=== PATIENT | male | born 1955 | race Caucasian/White ===

== ENCOUNTER → 2016-12-15 | Outpatient (CLI) | payer BC ==
[~2016-12-15] MED LIST: ALBUAER19 INH; ATOR-22 PO; B-COTAB18 PO; CALC-279 PO; CHOL100010 PO; CIPR-255 PO; EXEN1INJ3 PO; LEVO88TA3 PO; METF-384 PO; MULT-877 PO; SIMV-150 PO; TADA20TA PO; [UNRECOGNIZED DRUG - CODE] PO
--- NOTE | 2016-12-15 07:48 | DIAGNOSTIC IMAGING REPORT ---
CT LUMBAR SPINE WITHOUT CT DOSE: 676.27 mGy.cm CLINICAL HISTORY: Low back pain. Lumbar radiculopathy. TECHNIQUE: Helical images were acquired in transverse plane. Reformatted sagittal and coronal images were reviewed. CONTRAST: No contrast was administered COMPARISON STUDY: None. FINDINGS: L1-2 level: There is no evidence of significant disc bulge or focal herniation. There is no evidence of spinal or foraminal stenosis. L2-3 level: There is an inferior endplate L2 Schmorl's node. There is a circumferential disc bulge present. There is mild to moderate spinal stenosis. There is no significant foraminal narrowing L3-4 level: There is a circumferential disc bulge present. There is facet joint arthropathy. There is moderate spinal stenosis. There is left-sided foraminal narrowing. L4-5 level: There is a circumferential disc bulge. There is moderate spinal stenosis. There is right-sided foraminal narrowing. L5-S1 level: There is a posterior disc osteophyte complex. There is spinal stenosis. There is minor bilateral foraminal narrowing. No acute fractures or subluxations are visualized. IMPRESSION: Multilevel spondylitic changes with multilevel spinal stenosis. Electronically signed by: John Huertas M.D. 12/15/2016 7:46 AM Dictated Date/Time: 12/15/2016 7:42 AM
== END | disposition home or self-care (01) ==
LOC: C.CTS 07:28
PROVIDERS: ATTEND Physician Assistant Medical
DX: M47.26 Other spondylosis with radiculopathy, lumbar region (principal); M48.06 Spinal stenosis, lumbar region

== ENCOUNTER → 2017-07-06 | Outpatient (CLI) | payer BC ==
[~2017-07-06] MED LIST changes: -ALBUAER19 INH; -CALC-279 PO; -CIPR-255 PO
[2017-07-06 11:00] LABS: BLOOD UREA NITROGEN 17 mg/dl (7-18); GLUCOSE 150 mg/dl (70-99)
[2017-07-06 11:01] LABS: ALT/SGPT 30 U/L (12-78); AST/SGOT 17 U/L (15-37); BUN/CREATININE RATIO 18.1 (10-20); CALCIUM 8.8 mg/dl (8.5-10.1); CARBON DIOXIDE 28 mmol/L (21-32); CHLORIDE 103 mmol/L (98-107); CHOLESTEROL 160 mg/dl (0-200); CREATININE 0.96 mg/dl (0.60-1.40); POTASSIUM 4.8 mmol/L (3.5-5.1); SODIUM 139 mmol/L (136-145)
[2017-07-06 11:12] LABS: ALB/GLOB RATIO 1.1 (0.9-2); ALKALINE PHOSPHATASE 71 U/L (45-117); CHOLESTEROL/HDL RATIO 3.6; HDL CHOLESTEROL 45 mg/dl; LDL CHOLESTEROL CALCULATED 85 mg/dl; THYROID STIMULATING HORMONE 0.648 uIu/ml (0.300-4.500); TRIGLYCERIDES 150 mg/dl (0-150); VERY LOW DENSITY LIPOPROT CALC 30 mg/dl
[2017-07-06 11:40] LABS: ESTIMATED AVERAGE GLUCOSE 183 mg/dl; HA1C FLAG Normal (Normal)
== END | disposition home or self-care (01) ==
LOC: C.LABBC 08:28
PROVIDERS: ATTEND Internal Medicine
DX: E03.9 Hypothyroidism, unspecified (principal); E11.9 Type 2 diabetes mellitus without complications; G62.9 Polyneuropathy, unspecified; Z98.84 Bariatric surgery status

== ENCOUNTER → 2017-12-30 | Outpatient (CLI) | payer OTHER | END | disposition home or self-care (01) | LOC: C.LABBC 07:30 | PROVIDERS: ATTEND Internal Medicine Endocrinology, Diabetes & Metabolism | DX: E11.69 Type 2 diabetes mellitus with other specified complication (principal); E78.5 Hyperlipidemia, unspecified ==

== ENCOUNTER → 2018-04-07 | Day surgery (SDC) | payer BC, OTHER ==
[2018-04-05 13:39] VITALS: Ht 180.3 cm; Wt 86.4 kg
[~2018-04-07] VITALS: Ht 180.3 cm; Wt 86.4 kg
[~2018-04-07] MED LIST changes: -ATOR-22 PO; +BENA10TA10 PO; +CANA1TAB3 PO; +CHOL1000 PO; -CHOL100010 PO; +CHOL100041 PO; +CYAN500T13 PO; -EXEN1INJ3 PO; +INSU1INJ41 SC; +LIDOCAINE HCL 2% 2 ML VIAL (20MG/ML) ONE; +LPT40 PO; +MIDAZOLAM HCL 1 MG/ML 2ML VIAL ONE; +ONDANSETRON INJ 2 MG/ML 2 ML VIAL ONE; +PROPOFOL IV EMULSION 10 MG/ML 20 ML VIAL ONE; +SILD100T PO; -SIMV-150 PO; +SODIUM CHLORIDE 0.9% 500ML 500 ML IV ONE; -[UNRECOGNIZED DRUG - CODE] PO
--- NOTE | 2018-04-07 08:48 | Endo History and Physical ---
History & Physical Date of Service: Apr 07, 2018. Chief Complaint: Screening Referring Physician: Dr. Abdulkadir Kimbrough History of Present Illness 62 yo CM who presents for screening colonoscopy. Past Medical History Diabetes, Arthritis, High Cholesterol, Hypertension, Thyroid Disease Past Surgical History Hx Cardiac Surgery: No Hx Internal Defibrillator: No Hx Pacemaker: No Hx Abdominal Surgery: Yes (GASTRIC SLEEVE 2014) Hx of Implantable Prosthesis: No Hx Post-Op Nausea and Vomiting: No Hx Cancer Surgery: No Hx Thoracic Surgery: No Hx Orthopedic: Yes (RT/LT CTR) Hx Urinary Tract Surgery: No Family History None Social History Smoking Status: Former Smoker Hx Substance Use: No Hx Alcohol Use: Yes (1-2 beer per week) Allergies Coded Allergies: No Known Allergies (Verified , 04/05/18) Current Medications Reported Home Medications Medications Dose Route/Sig Max Daily Dose Days Date Category Viagra (Sildenafil Citrate) 100 Mg Tab 1 Tab PO DAILY 04/07/18 Reported Lotensin (Benazepril HCl) 10 Mg Tab 10 Mg PO QAM 04/05/18 Reported Vitamin D3 (Cholecalciferol) 1,000 Unit Tab 1 Tab PO DAILY 04/05/18 Reported Invokana (Canagliflozin) 300 Mg Tab 1 Tab PO DAILY 04/05/18 Reported Vitamin B12 500MCG (Cyanocobalamin) 500 Mcg Tab 500 Mcg PO DAILY 04/05/18 Reported Soliqua 100/33 100-33 Unt-Mcg/ml (Insulin Glargine-Lixisenatide) 1 Inj Inj 18 Units SC QAM 04/05/18 Reported Lipitor (Atorvastatin Calcium) 40 Mg Tab 1 Tab PO DAILY 04/05/18 Reported D 1000 (Cholecalciferol) 1,000 Unit Cap 1 Cap PO DAILY 04/05/18 Reported Glucophage (Metformin Hcl) 1,000 Mg Tab 1,000 Mg PO BID 01/02/17 Reported Multiple Vitamin/Minerals (Multiple Vitamins W/ Minerals) 1 Tab Tab 1 Tab PO DAILY 11/06/14 Reported Vitamin B Complex (B-Complex Vitamins) 1 Tab Tab 1 Tab PO DAILY 11/06/14 Reported Levothyroxine Sodium 88 Mcg Tab 88 Mcg PO DAILY 11/06/14 Reported Vital Signs Weight (Kilograms): 86.36 Height (Feet): 5 Height (Inches): 11 Date Time Temp Pulse Resp B/P (MAP) Pulse Ox O2 Delivery O2 Flow Rate FiO2 04/07/18 08:12 36.7 68 18 144/71 (95) 97 Room Air Physical Exam General Appearance: WD/WN, no apparent distress Respiratory/Chest: Auscultation: breath sounds normal Cardiovascular: Heart Auscultation: RRR Abdomen: Bowel Sounds: normal Inspection & Palpation: soft, non-distended, no tenderness, guarding & rebound Assessment and Plan Assessment: 62 yo CM who presents for screening colonoscopy. Plan: Proceed with colonoscopy.
--- NOTE | 2018-04-07 09:21 | GI REPORT ---
Patient Name: Washington Polo Procedure Date: 04/07/2018 8:37 AM Date of : 1955 Admit Type: Outpatient Age: 62 Gender: Male Attending MD: Heriberto Rose DO Procedure: Colonoscopy Providers: Heriberto Rose DO Referring MD: Abdulkadir Kimbrough Indications: Screening for colorectal malignant neoplasm Medicines: Monitored Anesthesia Care Complications: No immediate complications. Estimated Blood Loss: Estimated blood loss: none. Procedure: Pre-Anesthesia Assessment: - Prior to the procedure, a History and Physical was performed, and patient medications and allergies were reviewed. The patient's tolerance of previous anesthesia was also reviewed. The risks and benefits of the procedure and the sedation options and risks were discussed with the patient. All questions were answered, and informed consent was obtained. Prior Anticoagulants: The patient has taken no previous anticoagulant or antiplatelet agents. ASA Grade Assessment: II - A patient with mild systemic disease. After reviewing the risks and benefits, the patient was deemed in satisfactory condition to undergo the procedure. After I obtained informed consent, the scope was passed under direct vision. Throughout the procedure, the patient's blood pressure, pulse, and oxygen saturations were monitored continuously. The scope was introduced through the anus and advanced to the terminal ileum. The colonoscopy was performed without difficulty. The patient tolerated the procedure well. The quality of the bowel preparation was good. The terminal ileum, ileocecal valve, appendiceal orifice, and rectum were photographed. Findings: The perianal and digital rectal examinations were normal. A 4 mm polyp was found in the rectum. The polyp was sessile. The polyp was removed with a cold snare. Resection and retrieval were complete. To prevent bleeding after the polypectomy, one hemostatic clip was successfully placed (MR conditional). There was no bleeding at the end of the procedure. Multiple small-mouthed diverticula were found in the sigmoid colon. Impression: - One 4 mm polyp in the rectum, removed with a cold snare. Resected and retrieved. Clip (MR conditional) was placed. - Diverticulosis in the sigmoid colon. Recommendation: - Resume previous diet. - Continue present medications. - Repeat colonoscopy for surveillance based on pathology results. - Return to primary care physician as previously scheduled. Heriberto Rose DO 04/07/2018 9:21:30 AM This report has been signed electronically. Note Initiated On: 04/07/2018 8:37 AM Number of Addenda: 0 I attest to the content of the Intraoperative Record and orders documented therein, exceptions below {[id number]}
--- NOTE | 2018-04-07 09:24 | Discharge Instructions ---
Endoscopy Patient Instructions Date / Procedure(s) Performed Apr 07, 2018. Colonoscopy Allergy Information Coded Allergies: No Known Allergies (Verified , 04/05/18) Discharge Date / Findings Apr 07, 2018. Rectal polyp Diverticulosis Medication Instructions Stopped Medication(s): Patient was told to stop taking his diabetic meds. Patient stopped everything since yesterday. OK to resume all medications today as prescribed Reported Home Medications Medications Dose Route/Sig Max Daily Dose Days Date Category Viagra (Sildenafil Citrate) 100 Mg Tab 1 Tab PO DAILY 04/07/18 Reported Lotensin (Benazepril HCl) 10 Mg Tab 10 Mg PO QAM 04/05/18 Reported Vitamin D3 (Cholecalciferol) 1,000 Unit Tab 1 Tab PO DAILY 04/05/18 Reported Invokana (Canagliflozin) 300 Mg Tab 1 Tab PO DAILY 04/05/18 Reported Vitamin B12 500MCG (Cyanocobalamin) 500 Mcg Tab 500 Mcg PO DAILY 04/05/18 Reported Soliqua 100/33 100-33 Unt-Mcg/ml (Insulin Glargine-Lixisenatide) 1 Inj Inj 18 Units SC QAM 04/05/18 Reported Lipitor (Atorvastatin Calcium) 40 Mg Tab 1 Tab PO DAILY 04/05/18 Reported D 1000 (Cholecalciferol) 1,000 Unit Cap 1 Cap PO DAILY 04/05/18 Reported Glucophage (Metformin Hcl) 1,000 Mg Tab 1,000 Mg PO BID 01/02/17 Reported Multiple Vitamin/Minerals (Multiple Vitamins W/ Minerals) 1 Tab Tab 1 Tab PO DAILY 11/06/14 Reported Vitamin B Complex (B-Complex Vitamins) 1 Tab Tab 1 Tab PO DAILY 11/06/14 Reported Levothyroxine Sodium 88 Mcg Tab 88 Mcg PO DAILY 11/06/14 Reported Provider Instructions Activity Restrictions - No exercising or heavy lifting for 24 hours. - Do not drink alcohol the day of the procedure. - Do not drive a car or operate machinery until the day after the procedure. - Do not make any important decisions or sign important papers in 24 hours after the procedure. Following Day: - Return to full activity which may include returning to work/school. Diet Start your diet with liquids and light foods (jello, soup, juice, toast). Then eat your usual diet if not nauseated. Treatment For Common After Affects For mild abdominal pain, bloating, or excessive gas: - Rest - Eat lightly - Lie on right side Follow-Up Information Follow-up with Dr. Abdulkadir Kimbrough as scheduled Anesthesia Information What You Should Know You have had a procedure that required some medicine to reduce anxiety and discomfort. This treatment is called moderate sedation. After receiving the treatment, you may be sleepy, but you will be able to breathe on your own. The effects of the treatment may last for several hours. Follow these instructions along with Activity/Diet recommendations noted above: * Do NOT do anything where dizziness or clumsiness would be dangerous. * Rest quietly at home today, then you can be up and about tomorrow. * Have a responsible person stay with you the rest of today. * You may have had an I.V. today. If so, you may take the dressing off later today. Recommendations Call your doctor if: * Trouble breathing * Continuous vomiting for more than 24 hours * Temperature above 101 degrees * Severe abdominal pain or bloating * Pain not relieved by pain medicine ordered * There is increased drainage or redness from any incision * A large amount of rectal bleeding greater than 2-3 tablespoons. (If you had a polyp/s removed or have hemorrhoids, a small amount of blood - from the rectum is to be expected.) * You have any unanswered questions or concerns. IN THE EVENT OF A SERIOUS EMERGENCY, GO TO THE NEAREST EMERGENCY ROOM Your discharge instructions were prepared by provider Heriberto Rose. Patient Instructions Signature Page Washington Polo Patient (or Guardian) Signature/Date: I have read and understand the instructions given to me by my caregivers. Caregiver/RN/Doctor Signature/Date: The above-named patient and/or guardian has received patient instructions on this date. + Original Patient Signature Page (only) stays with chart. Please make copy for patient.
--- NOTE | 2018-04-07 09:49 | Anesthesiology Progress Note ---
Anesthesia Post Op Note Date & Time Apr 07, 2018 at 09:49 Vital Signs Pain Intensity: 0 Vital Signs Past 12 Hours Date Time Temp Pulse Resp B/P (MAP) Pulse Ox O2 Delivery O2 Flow Rate FiO2 04/07/18 09:35 70 16 95/60 (72) 99 Room Air 04/07/18 09:20 36.7 64 16 97/47 (64) 98 Room Air 04/07/18 08:12 36.7 68 18 144/71 (95) 97 Room Air Notes Mental Status: alert / awake / arousable, participated in evaluation Pt Amnestic to Procedure: Yes Nausea / Vomiting: adequately controlled Pain: adequately controlled Airway Patency, RR, SpO2: stable & adequate BP & HR: stable & adequate Hydration State: stable & adequate Anesthetic Complications: no major complications apparent
[2018-04-07 09:52] VITALS: BP 130/82; PULSE 63; O2SAT 98
== END | disposition home or self-care (01) ==
LOC: C.GI 07:43
PROVIDERS: ATTEND Internal Medicine
DX: Z12.11 Encounter for screening for malignant neoplasm of colon (principal); D12.8 Benign neoplasm of rectum; K57.30 Diverticulosis of large intestine without perforation or abscess without bleeding; I10 Essential (primary) hypertension; Z87.891 Personal history of nicotine dependence

== ENCOUNTER → 2018-04-14 | Outpatient (CLI) | payer OTHER ==
[~2018-04-14] MED LIST changes: -LIDOCAINE HCL 2% 2 ML VIAL (20MG/ML) ONE; -MIDAZOLAM HCL 1 MG/ML 2ML VIAL ONE; -ONDANSETRON INJ 2 MG/ML 2 ML VIAL ONE; -PROPOFOL IV EMULSION 10 MG/ML 20 ML VIAL ONE; -SODIUM CHLORIDE 0.9% 500ML 500 ML IV ONE; -TADA20TA PO
[2018-04-14 10:47] LABS: ALBUMIN 3.7 gm/dl (3.4-5.0); ALKALINE PHOSPHATASE 66 U/L (45-117); ALT/SGPT 23 U/L (12-78); AST/SGOT 16 U/L (15-37); BLOOD UREA NITROGEN 16 mg/dl (7-18); CALCIUM 8.9 mg/dl (8.5-10.1); CARBON DIOXIDE 30 mmol/L (21-32); CREATININE 1.06 mg/dl (0.60-1.40); GLUCOSE 79 mg/dl (70-99); POTASSIUM 4.7 mmol/L (3.5-5.1); SODIUM 142 mmol/L (136-145); TOTAL PROTEIN 7.1 gm/dl (6.4-8.2)
[2018-04-14 11:24] LABS: HEMOGLOBIN A1C 6.9 % (4.5-5.6)
== END | disposition home or self-care (01) ==
LOC: C.LABBC 07:29
PROVIDERS: ATTEND Internal Medicine Endocrinology, Diabetes & Metabolism
DX: E11.9 Type 2 diabetes mellitus without complications (principal); Z79.4 Long term (current) use of insulin